=== PATIENT | male | born 1945 | race Caucasian/White ===

== ENCOUNTER 2018-11-17 10:33 | Inpatient (IN) ==
[2018-11-17] MEDS ORDERED: Ipratropium/Albuterol Neb 3 ML IH ONE (10:41)
[2018-11-17] MEDS ORDERED: methylPREDNISolone 125 MG/2 ML VIAL IVP ONE (10:41)
[2018-11-17] MEDS ORDERED: 0.9 % Sodium Chloride 1,000 ML IVC ONE (10:47)
[2018-11-17 11:13] LABS: Bilirubin,Urine Small (Negative); Blood,Urine Negative (Negative); Clarity,Urine Cloudy (Clear); Color,Urine Dark Yellow (Yellow); Glucose,Urine (UA) Normal (Normal); Ketones,Urine 40 mg/dL (Negative); Leukocyte Esterase,Urine Negative (Negative); Nitrite,Urine Negative (Negative); PH,Urine 5.5 pH Units (5.0-8.0); Protein,Urine 30 mg/dL (Neg-Trace); Specific Gravity,Urine 1.029 (1.010-1.025); Urobilinogen,Urine Normal (Normal)
[2018-11-17] MEDS ORDERED: Piperacillin/Tazobactam 3.375 GM in 0.9 % Sodium Chloride Mini Bag 100 ML IVPB ONE (11:13)
[2018-11-17 11:16] LABS: Bacteria,Urine None Seen per hpf (None-Few); Hyaline Casts,Urine Moderate per lpf (None-Few); Squamous Epithelial Cell,Urine Many per lpf (None-Few)
--- NOTE | 2018-11-17 11:21 | Emergency Department Note ---
Disposition Clinical Impression: COPD exacerbation Pneumonia Qualifiers: Pneumonia type: due to unspecified organism Laterality: left Lung location: lower lobe of lung Qualified Code(s): J18.1 - Lobar pneumonia, unspecified organism Disposition: Admitted As Inpatient Condition: Fair Referrals: Miriam Fritz CNP [Primary Care Provider] - Forms: ED Satisfaction Letter Time of Disposition: 11:22 General Adult HPI - General Chief complaint: ED Weakness Stated complaint: COPD,Upper respiratory infection Time Seen by Provider: 11/17/18 10:39 Source: patient, family Mode of arrival: ambulatory Limitations: no limitations Nursing Notes Reviewed: Yes Vital Signs Reviewed: Yes - History of Present Illness HPI Narrative: 73 year old male with history of COPD and does not wear supplemental oxygen at home prsents to the ED with complaints of fialing outpatient terapy for CAP and was on a 10 day course of levaquin without improvement. Halima states that he feels more dyspneic and although not hypoxic at bedside is requiring 2LNC for therapy. Halima has a productive cough and is febrile to 100.5. Denies chest pain but feels like he is wheezing. He has not had any rcent hospitalization, no recent surgeries. Halima PCP is concerned that he needs IV ABX due to failign outpatient therapy. Pain Scale: 0 - Related Data Home Medications Medication Instructions Recorded Confirmed Alprazolam [Xanax] 0.5 mg PO TID PRN 07/19/15 07/19/15 Aspirin 81 mg PO HS 07/19/15 07/19/15 Cholecalciferol (Vitamin D3) 2,000 unit PO HS 07/19/15 07/19/15 [Vitamin D] Clopidogrel [Plavix] 75 mg PO DAILY 07/19/15 07/19/15 Cyanocobalamin (Vitamin B-12) 1,000 mcg PO HS 07/19/15 07/19/15 [Vitamin B-12] Fluticasone Propionate Nasal 1 spray NS DAILY 07/19/15 07/19/15 [Flonase] Lansoprazole [Prevacid] 30 mg PO DAILY 07/19/15 07/19/15 Lisinopril [Zestril] 10 mg PO HS 07/19/15 07/19/15 Metformin HCl [Glucophage Xr] 500 mg PO BID 07/19/15 07/19/15 Metoprolol XL (24 HR) Succ [Toprol 50 mg PO HS 07/19/15 07/19/15 XL] Ranitidine HCl [Zantac] 150 mg PO DAILY 07/19/15 07/19/15 Sotalol HCl [Betapace] 120 mg PO BID 07/19/15 07/19/15 Allergies Allergy/AdvReac Type Severity Reaction Status Date / Time No Known Allergies Allergy Verified 07/19/15 09:13 Constitutional: Reports: fever, chills, weakness. Denies: weight change Eyes: Denies: eye pain, eye discharge, vision change ENT ED: Denies: ear pain, throat pain, dental pain, hearing loss, epistaxis, congestion, dysphagia Cardiovascular: Denies: chest pain, palpitations, dyspnea on exertion, edema, syncope Respiratory: Reports: cough, dyspnea, wheezes. Denies: hemoptysis, stridor Gastrointestinal: Denies: abdominal pain, nausea, vomiting, diarrhea, constipation, hematemesis, melena, hematochezia Genitourinary: Denies: urgency, dysuria, frequency, hematuria Musculoskeletal: Denies: back pain, neck pain, arthralgia, myalgia Integumentary: Denies: rash, abrasion, lesions Neurological: Denies: headache, weakness, numbness, paresthesias, confusion, abnormal gait, vertigo Psychiatric: Denies: anxiety, depression, suicidal thoughts, homicidal thoughts, auditory hallucinations, visual hallucinations Endocrine: Denies: fatigue Hematological/Lymphatic: Denies: easy bleeding, easy bruising Allergic/Immunologic: Denies: facial swelling, urticaria Past Medical History - Past Medical History Medical history: Reports: COPD, coronary artery disease, CVA, diabetes, hyperlipidemia, hypertension, myocardial infarction, TIA, other Surgical history: Reports: angioplasty/stent, coronary bypass (CABG), pacemaker/AICD Psychiatric history: Reports: no psych history - Social History Smoking Status: Never smoker Smokeless Tobacco Status: No Alcohol use: Reports: none Drug use: Reports: none Physical Exam - General Limitations: no limitations General appearance: alert, in no apparent distress - Head Head exam: atraumatic, normocephalic, normal inspection - Eye Eye exam: Present: normal appearance, PERRL, EOMI - Expanded Eye Exam Pupils: Bilateral: reactive - ENT ENT exam: normal exam, normal oropharynx, mucous membranes moist - Expanded ENT Exam External ear exam: Present: normal external inspection Mouth exam: Present: normal external inspection Teeth exam: Present: normal inspection Throat exam: Present: normal inspection - Neck Neck exam: Present: normal inspection, full ROM, trachea midline - Chest Chest inspection: Present: normal inspection, symmetric chest wall rise - Respiratory Respiratory exam: Present: wheezes - Cardiovascular Cardiovascular exam: Present: regular rate, normal rhythm, normal heart sounds - Abdominal Exam Abdominal exam: Present: soft, Non-Tender. Absent: tenderness, distention, guarding, rebound, rigidity - Extremities Exam Extremities exam: Present: normal inspection, full ROM. Absent: tenderness, pedal edema - Expanded Upper Extremity Exam Shoulder exam: Present: normal inspection, full ROM Arm exam: Present: normal inspection, full ROM Elbow exam: Present: normal inspection, full ROM Forearm/Wrist exam: Present: normal inspection, full ROM Hand exam: Present: normal inspection, full ROM Vascular exam: Normal: capillary refill, radial pulse - Expanded Lower Extremity Exam Hip/Pelvis exam: Present: normal inspection, full ROM Upper leg exam: Present: normal inspection, full ROM Knee exam: Present: normal inspection, full ROM Lower leg exam: Present: normal inspection, full ROM Ankle exam: Present: normal inspection, full ROM Foot/toe exam: Present: normal inspection, full ROM Neurovascular/Tendon exam: Absent: motor deficit, sensory deficit, tendon deficit - Back Exam Back exam: Present: normal inspection, full ROM. Absent: tenderness - Neurological Exam Neurological exam: Present: alert, oriented X3 - Expanded Neurological Exam Patient oriented to: Present: person, place, time Coma Scale Eye Opening: Spontaneous Coma Scale Motor Response: Obeys Commands Coma Scale Verbal Response: Oriented Coma Scale Total: 15 - Psychiatric Psychiatric exam: Present: normal affect, normal mood - Skin Skin exam: Present: warm, dry, intact, normal color Course Course Narrative: halima has pnuemonia confirmed on CXR, vanc and zosyn have been started and IVF with tylenol therapy. I tamar admit to medicine. - Consultations Consultation #1: discussee case with Dr. Long and she accepts halima to her service. Halima is agreeable to plan. Time: 12:14 Vital Signs Temperature 100.5 F H 11/17/18 10:44 Pulse Rate 96 11/17/18 10:44 Respiratory Rate 20 11/17/18 10:44 Blood Pressure 123/80 01/08/19 10:44 O2 Sat by Pulse Oximetry 89 11/17/18 10:44 Temperature 100.5 F H 11/17/18 11:41 Pulse Rate 95 11/17/18 11:41 Respiratory Rate 20 11/17/18 11:41 Blood Pressure 152/79 11/17/18 11:41 O2 Sat by Pulse Oximetry 97 11/17/18 11:41 Oxygen Delivery Oxygen Delivery Nasal Cannula Medical Decision Making - Medical Records Medical records reviewed: Yes I reviewed the patient's medical records. - Lab Data Lab results reviewed: Yes I reviewed the patient's lab results. Result diagrams: 11/17/18 11:28 11/17/18 11:28 Lab Results 11/17/18 11/17/18 11/17/18 Range/Units 10:56 11:28 11:28 WBC (4.3-11.1) K/mcL RBC (4.19-5.50) M/mcL Hgb (12.9-16.9) g/dL Hct (37.5-50.1) % MCV (83.0-100.0) fL MCH (28.0-33.3) pg MCHC (31.6-35.5) g/dL RDW (11.5-14.5) % Plt Count (140-400) K/mcL MPV (9.4-12.4) fL Immature Gran % (0-4) % Seg Neutrophils % % Lymphocytes % % Monocytes % % Eosinophils % % Basophils % % Neutrophils # (1.6-8.9) K/mcL Lymphocytes # (0.6-4.6) K/mcL Monocytes # (0.0-1.3) K/mcL Eosinophils # (0.0-0.6) K/mcL Basophils # (0.0-0.2) K/mcL PT 13.1 H (9.4-12.1) Seconds INR 1.2 APTT 32.3 (26.0-36.0) Seconds Sodium (136-145) mEq/L Potassium (3.5-5.1) mEq/L Chloride (98-107) mEq/L Carbon Dioxide (23-29) mEq/L BUN (8-23) mg/dL Creatinine (0.70-1.30) mg/dL Est GFR ( Amer) (> 60) Est GFR (Non-Af Amer) (> 60) BUN/Creatinine Ratio (6-26) Glucose (70-105) mg/dL Calculated Osmolality (280-300) Lactic Acid (0.5-2.2) mmol/L Calcium (8.6-10.3) mg/dL Phosphorus (2.7-4.5) mg/dL Magnesium (1.6-2.6) mg/dL Total Bilirubin (0.3-1.0) mg/dL Direct Bilirubin (0.0-0.2) mg/dL Indirect Bilirubin (0.0-1.2) mg/dL AST (13-39) Units/L ALT (7-52) Units/L Alkaline Phosphatase (34-104) Units/L Troponin I (< 0.04) ng/mL B-Natriuretic Peptide 74 (Less than 100) pg/mL Serum Total Protein (6.4-8.9) g/dL Albumin (3.5-5.7) g/dL Globulin (2.4-3.5) g/dL Albumin/Globulin Ratio (1.1-2.2) Urine Color Dark Yellow (Yellow) Urine Clarity Cloudy A (Clear) Urine pH 5.5 (5.0-8.0) pH Units Ur Specific [place] 1.029 H (1.010-1.025) Urine Protein 30 H (Neg-Trace) mg/dL Urine Glucose (UA) Normal (Normal) mg/dL Urine Ketones 40 H (Negative) mg/dL Urine Blood Negative (Negative) Urine Nitrite Negative (Negative) Urine Bilirubin Small H (Negative) Urine Urobilinogen Normal (Normal) mg/dL Ur Leukocyte Esterase Negative (Negative) Urine Microscopic RBC 5-15 H (0-3) per hpf Urine Microscopic WBC 3-5 H (0-3) per hpf Ur Squamous Epith Cells Many H (None-Few) per lpf Urine Bacteria None Seen (None-Few) per hpf Hyaline Casts Moderate H (None-Few) per lpf Ur Culture Indicated? NO (NO) 11/17/18 11/17/18 11/17/18 Range/Units 11:28 11:28 11:28 WBC 11.7 H (4.3-11.1) K/mcL RBC 4.84 (4.19-5.50) M/mcL Hgb 13.9 (12.9-16.9) g/dL Hct 41.9 (37.5-50.1) % MCV 86.6 (83.0-100.0) fL MCH 28.7 (28.0-33.3) pg MCHC 33.2 (31.6-35.5) g/dL RDW 12.6 (11.5-14.5) % Plt Count 180 (140-400) K/mcL MPV 10.2 (9.4-12.4) fL Immature Gran % 0.3 (0-4) % Seg Neutrophils % 80.5 % Lymphocytes % 6.7 % Monocytes % 11.4 % Eosinophils % 0.8 % Basophils % 0.3 % Neutrophils # 9.4 H (1.6-8.9) K/mcL Lymphocytes # 0.8 (0.6-4.6) K/mcL Monocytes # 1.3 (0.0-1.3) K/mcL Eosinophils # 0.1 (0.0-0.6) K/mcL Basophils # 0.0 (0.0-0.2) K/mcL PT (9.4-12.1) Seconds INR APTT (26.0-36.0) Seconds Sodium 129 L (136-145) mEq/L Potassium 4.7 (3.5-5.1) mEq/L Chloride 93 L (98-107) mEq/L Carbon Dioxide 28 (23-29) mEq/L BUN 20 (8-23) mg/dL Creatinine 0.91 (0.70-1.30) mg/dL Est GFR ( Amer) > 60 (> 60) Est GFR (Non-Af Amer) > 60 (> 60) BUN/Creatinine Ratio 22 (6-26) Glucose 164 H (70-105) mg/dL Calculated Osmolality 274 L (280-300) Lactic Acid (0.5-2.2) mmol/L Calcium 9.2 (8.6-10.3) mg/dL Phosphorus 3.3 (2.7-4.5) mg/dL Magnesium 2.0 (1.6-2.6) mg/dL Total Bilirubin 1.4 H (0.3-1.0) mg/dL Direct Bilirubin 0.3 H (0.0-0.2) mg/dL Indirect Bilirubin 1.1 (0.0-1.2) mg/dL AST 10 L (13-39) Units/L ALT 12 (7-52) Units/L Alkaline Phosphatase 64 (34-104) Units/L Troponin I < 0.03 (< 0.04) ng/mL B-Natriuretic Peptide (Less than 100) pg/mL Serum Total Protein 7.0 (6.4-8.9) g/dL Albumin 4.1 (3.5-5.7) g/dL Globulin 2.9 (2.4-3.5) g/dL Albumin/Globulin Ratio 1.4 (1.1-2.2) Urine Color (Yellow) Urine Clarity (Clear) Urine pH (5.0-8.0) pH Units Ur Specific [place] (1.010-1.025) Urine Protein (Neg-Trace) mg/dL Urine Glucose (UA) (Normal) mg/dL Urine Ketones (Negative) mg/dL Urine Blood (Negative) Urine Nitrite (Negative) Urine Bilirubin (Negative) Urine Urobilinogen (Normal) mg/dL Ur Leukocyte Esterase (Negative) Urine Microscopic RBC (0-3) per hpf Urine Microscopic WBC (0-3) per hpf Ur Squamous Epith Cells (None-Few) per lpf Urine Bacteria (None-Few) per hpf Hyaline Casts (None-Few) per lpf Ur Culture Indicated? (NO) 11/17/18 Range/Units 11:28 WBC (4.3-11.1) K/mcL RBC (4.19-5.50) M/mcL Hgb (12.9-16.9) g/dL Hct (37.5-50.1) % MCV (83.0-100.0) fL MCH (28.0-33.3) pg MCHC (31.6-35.5) g/dL RDW (11.5-14.5) % Plt Count (140-400) K/mcL MPV (9.4-12.4) fL Immature Gran % (0-4) % Seg Neutrophils % % Lymphocytes % % Monocytes % % Eosinophils % % Basophils % % Neutrophils # (1.6-8.9) K/mcL Lymphocytes # (0.6-4.6) K/mcL Monocytes # (0.0-1.3) K/mcL Eosinophils # (0.0-0.6) K/mcL Basophils # (0.0-0.2) K/mcL PT (9.4-12.1) Seconds INR APTT (26.0-36.0) Seconds Sodium (136-145) mEq/L Potassium (3.5-5.1) mEq/L Chloride (98-107) mEq/L Carbon Dioxide (23-29) mEq/L BUN (8-23) mg/dL Creatinine (0.70-1.30) mg/dL Est GFR ( Amer) (> 60) Est GFR (Non-Af Amer) (> 60) BUN/Creatinine Ratio (6-26) Glucose (70-105) mg/dL Calculated Osmolality (280-300) Lactic Acid 1.2 (0.5-2.2) mmol/L Calcium (8.6-10.3) mg/dL Phosphorus (2.7-4.5) mg/dL Magnesium (1.6-2.6) mg/dL Total Bilirubin (0.3-1.0) mg/dL Direct Bilirubin (0.0-0.2) mg/dL Indirect Bilirubin (0.0-1.2) mg/dL AST (13-39) Units/L ALT (7-52) Units/L Alkaline Phosphatase (34-104) Units/L Troponin I (< 0.04) ng/mL B-Natriuretic Peptide (Less than 100) pg/mL Serum Total Protein (6.4-8.9) g/dL Albumin (3.5-5.7) g/dL Globulin (2.4-3.5) g/dL Albumin/Globulin Ratio (1.1-2.2) Urine Color (Yellow) Urine Clarity (Clear) Urine pH (5.0-8.0) pH Units Ur Specific [place] (1.010-1.025) Urine Protein (Neg-Trace) mg/dL Urine Glucose (UA) (Normal) mg/dL Urine Ketones (Negative) mg/dL Urine Blood (Negative) Urine Nitrite (Negative) Urine Bilirubin (Negative) Urine Urobilinogen (Normal) mg/dL Ur Leukocyte Esterase (Negative) Urine Microscopic RBC (0-3) per hpf Urine Microscopic WBC (0-3) per hpf Ur Squamous Epith Cells (None-Few) per lpf Urine Bacteria (None-Few) per hpf Hyaline Casts (None-Few) per lpf Ur Culture Indicated? (NO) - Radiology Data Radiology results reviewed: Yes I reviewed the patient's radiology results. - EKG Data EKG #1 EKG attestation: Yes I reviewed and interpreted this EKG. EKG results narrative: NSR with rate of 91. NO STEMI. normal interlvals. no change from 06/05/15. 1055
[2018-11-17 11:40] LABS: Basophils % 0.3 %; Eosinophils # 0.1 K/mcL (0.0-0.6); Eosinophils % 0.8 %; Hematocrit 41.9 % (37.5-50.1); Hemoglobin 13.9 g/dL (12.9-16.9); Immature Granulocytes % 0.3 % (0-4); Lymphocytes # 0.8 K/mcL (0.6-4.6); Lymphocytes % 6.7 %; Mean Corpuscular HGB Conc 33.2 g/dL (31.6-35.5); Mean Corpuscular Hemoglobin 28.7 pg (28.0-33.3); Mean Corpuscular Volume 86.6 fL (83.0-100.0); Mean Platelet Volume 10.2 fL (9.4-12.4); Monocytes # 1.3 K/mcL (0.0-1.3); Monocytes % 11.4 %; Neutrophils # 9.4 K/mcL (1.6-8.9); Platelet Count 180 K/mcL (140-400); Red Blood Count 4.84 M/mcL (4.19-5.50); Red Cell Distribution Width 12.6 % (11.5-14.5); Segmented Neutrophils % 80.5 %
[2018-11-17 11:49] LABS: INR 1.2; Prothrombin Time 13.1 Seconds (9.4-12.1)
[2018-11-17 11:52] LABS: Activated Partial Thrombo Time 32.3 Seconds (26.0-36.0)
[2018-11-17 12:00] LABS: BUN/Creatinine Ratio 22 (6-26); Blood Urea Nitrogen 20 mg/dL (8-23); Calcium 9.2 mg/dL (8.6-10.3); Carbon Dioxide 28 mEq/L (23-29); Chloride 93 mEq/L (98-107); Glucose 164 mg/dL (70-105); Osmolality,Calculated 274 (280-300); Potassium 4.7 mEq/L (3.5-5.1); Sodium 129 mEq/L (136-145); eGFR For Non-African Americans > 60 (> 60)
[2018-11-17 12:02] LABS: Albumin 4.1 g/dL (3.5-5.7); Albumin/Globulin Ratio 1.4 (1.1-2.2); Bilirubin,Direct 0.3 mg/dL (0.0-0.2); Bilirubin,Indirect 1.1 mg/dL (0.0-1.2); Bilirubin,Total 1.4 mg/dL (0.3-1.0); Globulin 2.9 g/dL (2.4-3.5); Phosphorous 3.3 mg/dL (2.7-4.5); Troponin I < 0.03 ng/mL (< 0.04)
[2018-11-17] MEDS ORDERED: Naloxone 0.4 MG/ML INJ IVP PRN (13:12)
[2018-11-17] MEDS ORDERED: ALPRAZolam 0.5 MG TABLET PO PRN (13:18)
[2018-11-17] MEDS ORDERED: D5% in Water 1,000 ML IVC PRN (13:20)
[2018-11-17] MEDS ORDERED: Dextrose Gel 15 GM/37.5 ML TUBE PO PRN ×2 (13:20)
[2018-11-17] MEDS ORDERED: *HR* Dextrose 50 % in Water (Syg) 50 ML SYRINGE IVP PRN (13:20)
--- NOTE | 2018-11-17 13:42 | Internal Med History&Physical ---
Date of Encounter: 11/17/18 Time of Encounter: 13:00 Internal Medicine - H&P: HPI Chief complaint: Coughing and shortness of breath of a couple of days duration History of present illness: Mr. Cuevas is a 73 year old male with pmh of COPD, CVA, diabetes, CAD presenting with complaints of coughing, wheezing and shortness of breath of about 10 days duration. Patient says symptoms were sudden onset and denies any sick contacts. He went to his PCP who treated him with a 10 day course of levaquin, but he has continued to have no relief from his symptoms. He denies any fevers, admits to lethargy and fatigue. He went back to his PCP who told him to come to the ER. He was noted to be febrile up to 100.5. In the ER, he was given nebs and antibiotics and he is being admitted for further management Past Med Surg Social Fam HX - Past Medical History Medical history: COPD, coronary artery disease, CVA, diabetes, hyperlipidemia, hypertension, myocardial infarction, TIA, other Additional medical history: CAD. STOMACH ULCER. TIA X2- RECOVERED Psychiatric history: no psych history - Past Surgical History Surgical History: angioplasty/stent, coronary bypass (CABG), pacemaker/AICD Additional surgical history: CABG 3v/4 stents. back - Social History Smoking Status: Never smoker Smokeless Tobacco Status: No Alcohol use: none Drug use: none Internal Medicine - H&P: Meds Alprazolam [Xanax] 0.5 mg PO TID PRN 07/19/15 [History] Aspirin 81 mg PO HS 07/19/15 [History] Cholecalciferol (Vitamin D3) [Vitamin D] 2,000 unit PO HS 07/19/15 [History] Clopidogrel [Plavix] 75 mg PO DAILY 07/19/15 [History] Cyanocobalamin (Vitamin B-12) [Vitamin B-12] 1,000 mcg PO HS 07/19/15 [History] Fluticasone Propionate Nasal [Flonase] 1 spray NS DAILY 07/19/15 [History] Lansoprazole [Prevacid] 30 mg PO DAILY 07/19/15 [History] Lisinopril [Zestril] 10 mg PO HS 07/19/15 [History] Metformin HCl [Glucophage Xr] 500 mg PO BID 07/19/15 [History] Metoprolol XL (24 HR) Succ [Toprol XL] 50 mg PO HS 07/19/15 [History] Ranitidine HCl [Zantac] 150 mg PO DAILY 07/19/15 [History] Sotalol HCl [Betapace] 120 mg PO BID 07/19/15 [History] Allergy/AdvReac Type Severity Reaction Status Date / Time No Known Allergies Allergy Verified 07/19/15 09:13 All Systems PM: A 10-system review of systems was performed and is negative for pertinent findings except as documented above in the HPI. - Constitutional Constitutional: no chills, no fever(s), no night sweats - EENT Eyes: no change in vision, no discharge, no pain, no photophobia Ears: no ear discharge, no ear pain, no tinnitus Nose, mouth and throat: no dysphagia, no nasal discharge, no neck pain, no sore throat - Cardiovascular Cardiovascular ROS IM: dyspnea, no chest pain, no diaphoresis, no lightheadedness, no palpitations, no syncope - Respiratory Respiratory: cough, dyspnea, wheezing, no excessive phlegm production - Gastrointestinal Gastrointestinal: no abdominal pain, no diarrhea, no hematemesis, no hematochezia, no melena, no nausea, no vomiting - Musculoskeletal Musculoskeletal ROS IM: no numbness, no tingling - Integumentary Integumentary IM: no rash, no unusual bruising - Neurological Neurological ROS: no confusion, no convulsions, no focal weakness, no numbness, no tingling, no tremor(s) - Hematologic/Lymphatic Hematologic/Lymphatic: no easy bruising - Constitutional Vitals: Temp Pulse Resp BP Pulse Ox 100.5 F H 90 22 132/85 97 11/17/18 11:41 11/17/18 12:00 11/17/18 12:00 11/17/18 12:00 11/17/18 12:00 Exam: NAD - Head Head exam: Present: atraumatic, normocephalic - Eye Eye exam: Present: PERRL, conjuntiva pink, sclera anicteric Pupils: Present: PERRL - Neck Neck exam general surgery: Present: supple, trachea midline. Absent: lymphadenopathy - Respiratory Respiratory exam: Present: decreased breath sounds, wheezes. Absent: accessory muscle use, rales, rhonchi - Cardiovascular Cardiovascular exam: Present: RRR, +S1, +S2. Absent: diastolic murmur, gallop, rubs, systolic murmur - GI/Abdominal GI/Abdominal exam: Present: normal bowel sounds, soft, no peritoneal signs. Absent: distended, tenderness - Extremities Exam Extremities exam: Present: warm, radial pulses palpable and symmetrical. Absent: calf tenderness, cyanotic, pedal edema - Neurological Exam Neurological exam: Present: CN II-XII intact, oriented X3, no focal deficits. Absent: pronater drift, facial droop, speech deficit - Skin Skin exam: Present: dry, intact Internal Med - H&P Results - Labs CBC & Chem 7: 11/17/18 11:28 11/17/18 11:28 Labs: Short CBC 11/17/18 Range/Units 11:28 WBC 11.7 H (4.3-11.1) K/mcL Hgb 13.9 (12.9-16.9) g/dL Hct 41.9 (37.5-50.1) % Plt Count 180 (140-400) K/mcL Neutrophils # 9.4 H (1.6-8.9) K/mcL BMP 11/17/18 11:28 Sodium 129 L Potassium 4.7 Chloride 93 L Carbon Dioxide 28 BUN 20 Creatinine 0.91 Glucose 164 H Calcium 9.2 Cardiac Enzymes 11/17/18 Range/Units 11:28 Troponin I < 0.03 (< 0.04) ng/mL Liver Function 11/17/18 Range/Units 11:28 Total Bilirubin 1.4 H (0.3-1.0) mg/dL Direct Bilirubin 0.3 H (0.0-0.2) mg/dL AST 10 L (13-39) Units/L ALT 12 (7-52) Units/L Alkaline Phosphatase 64 (34-104) Units/L Albumin 4.1 (3.5-5.7) g/dL Urine 11/17/18 Range/Units 10:56 Urine Color Dark Yellow (Yellow) Urine Clarity Cloudy A (Clear) Urine pH 5.5 (5.0-8.0) pH Units Ur Specific [place] 1.029 H (1.010-1.025) Urine Protein 30 H (Neg-Trace) mg/dL Urine Glucose (UA) Normal (Normal) mg/dL - Impressions ITS Impressions Chest X-Ray 11/17/18 10:41 IMPRESSION: 1. Left lower lobe pneumonia. Follow-up to resolution is recommended. D/ / Burak Logan MD / Burak Logan MD Interpreting Provider: Burak Logan MD - Assessment and plan (1) Sepsis Current Visit: Yes Status: Acute Assessment and plan: Sepsis likely 2/2 to community acquired pneumonia. Pt comes in with leukocytosis, tachycardia and tachypnea with CAP Failed outpatient therapy with levaquin. Will start on zosyn. Follow blood cultures, urine legionella and streptococcal antigen Qualifiers: Qualified Code(s): A41.9 - Sepsis, unspecified organism (2) Pneumonia Current Visit: Yes Status: Acute Assessment and plan: Pt comes in with leukocytosis, tachycardia and tachypnea with CAP on xray Failed outpatient therapy with levaquin. Will start on zosyn. Follow blood cultures, urine legionella and streptococcal antigen Qualifiers: Pneumonia type: due to unspecified organism Laterality: left Lung location: lower lobe of lung Qualified Code(s): J18.1 - Lobar pneumonia, unspecified organism (3) COPD exacerbation Current Visit: Yes Status: Acute Assessment and plan: Started on nebs, steroids and antibiotics (4) CAD (coronary artery disease) Current Visit: Yes Status: Acute Assessment and plan: Resume home meds with aspirin, plavix and beta blockers Qualifiers: Qualified Code(s): I25.10 - Atherosclerotic heart disease of [place] coronary artery without angina pectoris (5) Diabetes mellitus Current Visit: Yes Status: Acute Assessment and plan: LDSS insulin and monitor fingersticks Qualifiers: Qualified Code(s): E11.9 - Type 2 diabetes mellitus without complications (6) Hyponatremia Current Visit: Yes Status: Acute Assessment and plan: On IV fluids with normal saline (7) DVT prophylaxis Current Visit: Yes Status: Acute Assessment and plan: heparin sc - Time Spent With Patient Total time spent is greater than 50% in coordination of care (as documented) at patient's floor/unit and/or counseling patient:
[2018-11-17 14:12] LABS: Estimated Average Glucose 160 mg/dl; Hemoglobin A1C 7.2 %
[2018-11-17] MEDS: Ipratropium/Albuterol Neb 3 ML IH SCH ×3 (15:39→23:32)
[2018-11-17] MEDS: 0.9 % Sodium Chloride 1,000 ML IVC SCH (15:57)
[2018-11-17] MEDS ORDERED: methylPREDNISolone 125 MG/2 ML VIAL IVP SCH (16:00)
[2018-11-17] MEDS: MethylPREDNISolone 40 MG/ML VIAL IVP SCH (17:46)
[2018-11-17] MEDS: Insulin LISPRO 300 UNITS/3 ML VIAL SQ SCH ×2 (17:46→22:05)
[2018-11-17 18:08] LABS: Adenovirus Not Detected (Not Detect); Bordetella Pertussis Not Detected (Not Detect); Chlamydophila pneumoniae Not Detected (Not Detect); Coronavirus 229E Not Detected (Not Detect); Coronavirus HKU1 Not Detected (Not Detect); Coronavirus NL63 Not Detected (Not Detect); Coronavirus OC43 Not Detected (Not Detect); Human Metapneumovirus Not Detected (Not Detect); Human Rhinovirus/Enterovirus DETECTED (Not Detect); Influenza A Subtype 2009 H1 Not Detected (Not Detect); Influenza A Untypeable Not Detected (Not Detect); Influenza B Not Detected (Not Detect); Mycoplasma pneumoniae Not Detected (Not Detect); Parainfluenza Virus 1 Not Detected (Not Detect); Parainfluenza Virus 2 Not Detected (Not Detect); Parainfluenza Virus 3 Not Detected (Not Detect); Parainfluenza Virus 4 Not Detected (Not Detect); Respiratory Syncytial Virus Not Detected (Not Detect)
[2018-11-17] MEDS: Budesonide/Formoterol 160/4.5 1 PUFF INH IH SCH (20:10)
[2018-11-17] MEDS: Cholecalciferol (D-3) 1,000 UNIT TABLET PO SCH (21:13)
[2018-11-17] MEDS: Aspirin 81 MG TAB.CHEW PO SCH (21:13)
[2018-11-17] MEDS: Metoprolol XL (24 HR) Succ 50 MG TAB.ER.24H PO SCH (21:13)
[2018-11-17] MEDS: Piperacillin/Tazobactam 3.375 GM in 0.9 % Sodium Chloride Mini Bag 100 ML IVPB SCH (21:13)
[2018-11-17] MEDS: Cyanocobalamin (B-12) 1,000 MCG TABLET PO SCH (21:14)
--- NOTE | 2018-11-17 21:28 | Electrocardiograph Report ---
[facility] Data Test Date: 2018-11-17 Pat Name: Vy Cuevas Department: [id number] Room: 3B24 Gender: M Classroom Assistant: : 1945 Requested By: Jolene Quinones Order Number: [id number] Reading MD: Scott Henry Measurements Intervals [place] Rate: 91 P: 77 SC: 226 QRS: 85 QRSD: 120 T: 29 QT: 366 QTc: 451 Interpretive Statements Sinus rhythm Nonspecific intraventricular conduction delay Electronically Signed On 11-17-2018 21:27:01 EST by Scott Henry
[2018-11-18] MEDS: Piperacillin/Tazobactam 3.375 GM in 0.9 % Sodium Chloride Mini Bag 100 ML IVPB SCH ×3 (04:09→21:00)
[2018-11-18 04:21] LABS: Basophils % 0.2 %; Eosinophils % 0.1 %; Hematocrit 35.6 % (37.5-50.1); Immature Granulocytes % 0.3 % (0-4); Lymphocytes # 0.6 K/mcL (0.6-4.6); Lymphocytes % 4.7 %; Mean Corpuscular HGB Conc 34.3 g/dL (31.6-35.5); Mean Corpuscular Volume 84.6 fL (83.0-100.0); Mean Platelet Volume 10.8 fL (9.4-12.4); Monocytes % 4.4 %; Neutrophils # 11.2 K/mcL (1.6-8.9); Platelet Count 196 K/mcL (140-400); Red Blood Count 4.21 M/mcL (4.19-5.50); Red Cell Distribution Width 12.5 % (11.5-14.5); Segmented Neutrophils % 90.3 %
[2018-11-18 04:24] LABS: Hemoglobin 12.2 g/dL (12.9-16.9); Monocytes # 0.6 K/mcL (0.0-1.3)
[2018-11-18 04:37] LABS: BUN/Creatinine Ratio 26 (6-26); Blood Urea Nitrogen 21 mg/dL (8-23); Calcium 8.7 mg/dL (8.6-10.3); Carbon Dioxide 23 mEq/L (23-29); Chloride 98 mEq/L (98-107); Glucose 275 mg/dL (70-105); Magnesium 2.1 mg/dL (1.6-2.6); Osmolality,Calculated 281 (280-300); Phosphorous 2.1 mg/dL (2.7-4.5); Potassium 4.3 mEq/L (3.5-5.1); Sodium 129 mEq/L (136-145); eGFR For Non-African Americans > 60 (> 60)
[2018-11-18] MEDS: Ipratropium/Albuterol Neb 3 ML IH SCH ×6 (04:42→23:24)
[2018-11-18] MEDS: MethylPREDNISolone 40 MG/ML VIAL IVP SCH ×2 (06:12→17:28)
[2018-11-18] MEDS: 0.9 % Sodium Chloride 1,000 ML IVC SCH ×2 (06:12→17:29)
[2018-11-18] MEDS: Budesonide/Formoterol 160/4.5 1 PUFF INH IH SCH ×2 (07:43→19:47)
[2018-11-18] MEDS: Insulin LISPRO 300 UNITS/3 ML VIAL SQ SCH ×4 (08:39→21:03)
[2018-11-18] MEDS ORDERED: Fluticasone Propionate Nasal 50 MCG/SPRAY BOTTLE NS SCH (09:00)
--- NOTE | 2018-11-18 10:46 | Internal Med Progress Note ---
<Pavithra Hinds P - Last Filed: 11/18/18 15:21> Hospitalist Progress Note - Encounter Date of Encounter: 11/18/18 Time of Encounter: 08:45 - Subjective Interval History: 73 year old male with past medical history of COPD without home oxygen , CVA, diabetes, CAD presenting with complaints of coughing, wheezing and shortness of breath of about 10 days duration. He has hx of frequent chest infecton /pneumonia in the past , it was treated with Levaquin from his primary care provider. Recently his respiratory symptoms got worse and came to the hospital. In ED he has had elevated temperature 100.5F and elevated white cell count. His chest x-ray showed left lower lobe pneumonia.Rhino Viral was detected in Respi panel test. He was admitted for inpatient management with IV antibiotic and IV steroid. Today during my bedside visit, the patient was lying comfortably on the bed, was not in acute distress, answering question appropriately. His vitals are stable, is not febrile after admission. He stated that after IV antibiotic he has been much better, he does have some shortness of breath and wheezing but a lot ana r.He admitted dry cough and slight tightness in chest. - Exam Vitals: Temp Pulse Resp BP Pulse Ox 97.7 F 84 18 114/70 98 11/18/18 06:30 11/18/18 06:30 11/18/18 07:43 11/18/18 06:30 11/18/18 07:43 Exam: Gen: Alert, awake , Oriented to time,place and person Chest: Diminished BS b/l, No crackles, No rales,expiratory wheezing ++ Heart: S1S2+ RRR No Murmurs Abd: Soft, NT, BS + No organomegaly Ext: No edema, pulses are palpable, no tenderness Neuro: No focal neuro deficits Psych: Normal mood Skin: No rash - Assessment and Plan (1) Pneumonia Current Visit: Yes Status: Acute Assessment and Plan: The patient was presented for shortness of breath and cough, the patient has history of frequent pneumonia and taking Levaquin twice in past 3 months Patient has elevated white cell count: 12.4 and neutrophil 11.2. CXR : Left lower lobe pneumonia. The patient is on IV Zosyn, (2) COPD exacerbation Current Visit: Yes Status: Acute Assessment and Plan: The patient is chronic patient of COPD without home oxygen, past smoker. He was presented with shortness of breath, wheezing, cough and COPD excerbation is due to infection. Respi pannel test positive for Rhino virus. IV antibiotics and IV solumedrol , Symbicort inhaler and nebulization Saturation 98% with 2 L oxygen. (3) CAD (coronary artery disease) Current Visit: Yes Status: Acute Assessment and Plan: The patient has h/o CAD , we have resumed home meds with aspirin, plavix and beta blockers (4) Hyponatremia Current Visit: Yes Status: Acute Assessment and Plan: The patient has low sodium level, recent lab report 129, he is on IV normal saline, we will re-assess his sodium level tomorrow (5) Diabetes mellitus Current Visit: Yes Status: Acute Assessment and Plan: The patient is on insulin sliding scale, latest blood glucose level is 275 and POC glucose 288, A1c 7.2 done this month - Time Spent with Patient Total time spent is greater than 50% in coordination of care (as documented) at patient's floor/unit and/or counseling patient: Internal Medicine: Result - Labs CBC & Chem 7: 11/18/18 03:28 11/18/18 03:28 Labs: Short CBC 11/17/18 11/18/18 Range/Units 11:28 03:28 WBC 11.7 H 12.4 H (4.3-11.1) K/mcL Hgb 13.9 12.2 L D (12.9-16.9) g/dL Hct 41.9 35.6 L (37.5-50.1) % Plt Count 180 196 (140-400) K/mcL Neutrophils # 9.4 H 11.2 H (1.6-8.9) K/mcL BMP 11/17/18 11/18/18 11:28 03:28 Sodium 129 L 129 L Potassium 4.7 4.3 Chloride 93 L 98 Carbon Dioxide 28 23 BUN 20 21 Creatinine 0.91 0.80 Glucose 164 H 275 H Calcium 9.2 8.7 Cardiac Enzymes 11/17/18 Range/Units 11:28 Troponin I < 0.03 (< 0.04) ng/mL Liver Function 11/17/18 Range/Units 11:28 Total Bilirubin 1.4 H (0.3-1.0) mg/dL Direct Bilirubin 0.3 H (0.0-0.2) mg/dL AST 10 L (13-39) Units/L ALT 12 (7-52) Units/L Alkaline Phosphatase 64 (34-104) Units/L Albumin 4.1 (3.5-5.7) g/dL Urine 11/17/18 Range/Units 10:56 Urine Color Dark Yellow (Yellow) Urine Clarity Cloudy A (Clear) Urine pH 5.5 (5.0-8.0) pH Units Ur Specific [place] 1.029 H (1.010-1.025) Urine Protein 30 H (Neg-Trace) mg/dL Urine Glucose (UA) Normal (Normal) mg/dL - ABG Interpretation ABG results: PT/INR, D-dimer PT 13.1 Seconds (9.4-12.1) H 11/17/18 11:28 - Impressions Impressions Chest X-Ray 11/17/18 10:41 IMPRESSION: 1. Left lower lobe pneumonia. Follow-up to resolution is recommended. D/ / Burak Logan MD / Burak Logan MD Interpreting Provider: Burak Logan MD Consult Discharge Plan - Plan Referrals: Miriam Fritz, LALO [Primary Care Provider] - <Shama Mari - Last Filed: 11/18/18 16:07> Hospitalist Progress Note - Encounter Date of Encounter: 11/18/18 - Exam Vitals: Temp Pulse Resp BP Pulse Ox 97.5 F L 74 18 128/77 96 11/18/18 12:03 11/18/18 12:03 11/18/18 15:46 11/18/18 12:03 11/18/18 15:46 - Assessment and Plan (1) Pneumonia Current Visit: Yes Status: Acute (2) COPD exacerbation Current Visit: Yes Status: Acute (3) Sepsis Current Visit: Yes Status: Acute (4) CAD (coronary artery disease) Current Visit: Yes Status: Acute (5) Diabetes mellitus Current Visit: Yes Status: Acute (6) DVT prophylaxis Current Visit: Yes Status: Acute (7) Hyponatremia Current Visit: Yes Status: Acute - Time Spent with Patient Total time spent is greater than 50% in coordination of care (as documented) at patient's floor/unit and/or counseling patient: Internal Medicine: Result - Labs CBC & Chem 7: 11/18/18 03:28 11/18/18 03:28 Labs: Short CBC 11/18/18 Range/Units 03:28 WBC 12.4 H (4.3-11.1) K/mcL Hgb 12.2 L D (12.9-16.9) g/dL Hct 35.6 L (37.5-50.1) % Plt Count 196 (140-400) K/mcL Neutrophils # 11.2 H (1.6-8.9) K/mcL BMP 11/18/18 03:28 Sodium 129 L Potassium 4.3 Chloride 98 Carbon Dioxide 23 BUN 21 Creatinine 0.80 Glucose 275 H Calcium 8.7 - ABG Interpretation ABG results: PT/INR, D-dimer PT 13.1 Seconds (9.4-12.1) H 11/17/18 11:28 - Attending Attestation I examined this patient and my medical decision-making was reviewed with the Resident Physician Dr. Hinds. I agree with the documented findings, disposition and treatment plan as described except to the extent set forth below. Mr. Cuevas is a 73 y/o M with known PMH of COPD, HTN pt admitted here for recurrent pneumonia. Pt was placed on empirical abx Zosyn and IV steroids. He states his breathing is lot better today. Currently on 2 lit O2. His Spo2 @ 89 on RA. Gen: A, A, O x3 Chest: Mild wheezing, no crackles, no rales, Diminished BS b.l a/p 1. Acute PNA - bacterial 2. Acute resp distress 3. Acute COPD exacerbation start tapering steroids cont empirical abx Duoneb and try to wean him off the O2 he may need home O2 eval <Pavithra Hinds P - Last Filed: 11/18/18 15:21> (1) Pneumonia Qualifiers: Pneumonia type: due to unspecified organism Laterality: left Lung location: lower lobe of lung Qualified Code(s): J18.1 - Lobar pneumonia, unspecified organism (3) CAD (coronary artery disease) Qualifiers: Qualified Code(s): I25.10 - Atherosclerotic heart disease of [place] coronary artery without angina pectoris (5) Diabetes mellitus Qualifiers: Qualified Code(s): E11.9 - Type 2 diabetes mellitus without complications <Shama Mari - Last Filed: 11/18/18 16:07> (1) Pneumonia Qualifiers: Pneumonia type: due to unspecified organism Laterality: left Lung location: lower lobe of lung Qualified Code(s): J18.1 - Lobar pneumonia, unspecified organism (3) Sepsis Qualifiers: Qualified Code(s): A41.9 - Sepsis, unspecified organism (4) CAD (coronary artery disease) Qualifiers: Qualified Code(s): I25.10 - Atherosclerotic heart disease of [place] coronary artery without angina pectoris (5) Diabetes mellitus Qualifiers: Qualified Code(s): E11.9 - Type 2 diabetes mellitus without complications
[2018-11-18] MEDS: Aspirin 81 MG TAB.CHEW PO SCH (21:02)
[2018-11-18] MEDS: Cholecalciferol (D-3) 1,000 UNIT TABLET PO SCH (21:02)
[2018-11-18] MEDS: Metoprolol XL (24 HR) Succ 50 MG TAB.ER.24H PO SCH (21:02)
[2018-11-18] MEDS: Cyanocobalamin (B-12) 1,000 MCG TABLET PO SCH (21:02)
[2018-11-19] MEDS: Piperacillin/Tazobactam 3.375 GM in 0.9 % Sodium Chloride Mini Bag 100 ML IVPB SCH (03:25)
[2018-11-19] MEDS: 0.9 % Sodium Chloride 1,000 ML IVC SCH (03:26)
[2018-11-19] MEDS: Ipratropium/Albuterol Neb 3 ML IH SCH ×2 (03:42→08:03)
[2018-11-19 05:35] LABS: BUN/Creatinine Ratio 25 (6-26); Blood Urea Nitrogen 21 mg/dL (8-23); Calcium 8.6 mg/dL (8.6-10.3); Carbon Dioxide 25 mEq/L (23-29); Chloride 98 mEq/L (98-107); Glucose 198 mg/dL (70-105); Osmolality,Calculated 281 (280-300); Potassium 4.2 mEq/L (3.5-5.1); Sodium 131 mEq/L (136-145); eGFR For Non-African Americans > 60 (> 60)
[2018-11-19] MEDS: MethylPREDNISolone 40 MG/ML VIAL IVP SCH (06:33)
[2018-11-19 07:13] VITALS: BP 129/75
[2018-11-19] MEDS: Budesonide/Formoterol 160/4.5 1 PUFF INH IH SCH (08:03)
[2018-11-19] MEDS: Insulin LISPRO 300 UNITS/3 ML VIAL SQ SCH (08:45)
[2018-11-19 10:01] LABS: Hematocrit 38.4 % (37.5-50.1); Hemoglobin 12.7 g/dL (12.9-16.9); Mean Corpuscular HGB Conc 33.1 g/dL (31.6-35.5); Mean Corpuscular Hemoglobin 28.5 pg (28.0-33.3); Mean Corpuscular Volume 86.1 fL (83.0-100.0); Mean Platelet Volume 10.5 fL (9.4-12.4); Platelet Count 212 K/mcL (140-400); Red Blood Count 4.46 M/mcL (4.19-5.50); Red Cell Distribution Width 12.2 % (11.5-14.5)
--- NOTE | 2018-11-19 10:33 | Discharge Summary ---
<Pavithra Hinds P - Last Filed: 11/19/18 16:47> - NOTES TO OUTPATIENT PROVIDER Notes to Outpatient Provider: *The patient will follow-up with his primary care provider within a week. *The patient will take oral Prednisone in tapering dose. *The patient will take oral antibiotic / Augmentin for 5 days. *The pt will see allergic specialist in 3-4 weeks . Orders not resulted at time of discharge: Pending orders 11/17/18 11:28 Culture,Blood [BC] Stat Date of Encounter: 11/19/18 Time of Encounter: 08:45 - Discharge Diagnosis (1) Pneumonia Priority: Primary Status: Acute Qualifiers: Pneumonia type: due to unspecified organism Laterality: left Lung location: lower lobe of lung Qualified Code(s): J18.1 - Lobar pneumonia, unspecified organism (2) COPD exacerbation Priority: Primary Status: Acute (3) CAD (coronary artery disease) Priority: Secondary Status: Chronic Qualifiers: Qualified Code(s): I25.10 - Atherosclerotic heart disease of [place] coronary artery without angina pectoris (4) Hyponatremia Priority: Secondary Status: Chronic (5) Diabetes mellitus Priority: Secondary Status: Chronic Qualifiers: Qualified Code(s): E11.9 - Type 2 diabetes mellitus without complications Hospital course: Mr. Cuevas is a 73 year old male with past medical history of COPD without home oxygen , CVA, diabetes, CAD presented to ED with complaints of coughing with scanty sputum, wheezing and shortness of breath of about 10 days. He has hx of frequent chest infecton /pneumonia in the past ,he was treated with Levaquin from his primary care provider. Recently his respiratory symptoms got worse and came to the Emergency . In ED he has had elevated temperature 100.5F and elevated white cell count 11.7 .His chest x-ray showed left lower lobe pneumonia.Rhino Viral was detected in Respiratory panel test. He was admitted for inpatient management with IV antibiotic Zosyn and IV steroid. After admission the patient has been clinically improved, his shortness of breath, cough, chest tightness has been improved significantly. His vitals are stable. We are planning to discharge him and he will follow-up with his primary care provider within a week. He will take oral antibiotic Augmentin and tapering dose of steroid for couple of days. - Time Spent with Patient Total time spent providing and/or coordinating discharge services: - Discharge Medications Prescriptions: Amoxicillin/Clavulanate [Augmentin] 875 mg PO BIDWM 5 Days #10 tablet RX: PredniSONE [Deltasone] 10 mg PO ONCE 5 Days #11 tablet Home Medications: RX: Aspirin 81 mg PO HS 07/19/15 [History] RX: Cyanocobalamin (Vitamin B-12) [Vitamin B12] 1,000 mcg PO HS 07/19/15 [History] RX: Lisinopril [Zestril] 10 mg PO HS 07/19/15 [History] RX: ALPRAZolam [Xanax 0.5 MG Tablet] 0.5 mg PO TID PRN 11/17/18 [History] RX: Albuterol Sulfate [Ventolin Hfa] 2 puff IH Q6H PRN 11/17/18 [History] RX: Cholecalciferol (D-3) [Vitamin D] 2,000 unit PO DAILY 11/17/18 [History] RX: Clopidogrel [Plavix] 75 mg PO DAILY 11/17/18 [History] RX: Esomeprazole Magnesium [Nexium] 40 mg PO QAM 11/17/18 [History] RX: Fluticasone Propionate Nasal [Flonase] 1 spray NS DAILY 11/17/18 [History] RX: Fluticasone/Salmeterol [Advair Hfa 230-21 Mcg Inhaler] 2 puff IH BID 11/17/18 [History] RX: Hydrocortisone 1% CREAM [Cortaid] 1 appl TP BID PRN 11/17/18 [History] RX: Multivitamin [Flintstones] 1 tab PO DAILY 11/17/18 [History] RX: Sertraline [Zoloft] 50 mg PO DAILY 11/17/18 [History] RX: Sotalol [Betapace] 80 mg PO Q12HR 11/17/18 [History] Amoxicillin/Clavulanate [Augmentin] 875 mg PO BIDWM 5 Days #10 tablet 11/19/18 [Rx] RX: PredniSONE [Deltasone] 10 mg PO ONCE 5 Days #11 tablet 11/19/18 [Rx] Allergies/Adverse Reactions: Allergy/AdvReac Type Severity Reaction Status Date / Time No Known Allergies Allergy Verified 07/19/15 09:13 Date of admission: 11/17/18 13:12 Primary care physician: Miriam Fritz CNP - Constitutional Vitals: Temp Pulse Resp BP Pulse Ox 97.6 F 63 18 129/75 93 11/19/18 07:05 11/19/18 07:05 11/19/18 08:03 11/19/18 07:05 11/19/18 08:03 General appearance: Present: A&O X 3, no acute distress, answers questions appropriately Exam: Gen: Alert, awake , Oriented to time,place and person Chest: Diminished BS b/l, No crackles, No rales,expiratory wheezing minimal Heart: S1S2+ RRR No Murmurs Abd: Soft, NT, BS + No organomegaly Ext: No edema, pulses are palpable, no tenderness Neuro: No focal neuro deficits Psych: Normal mood Skin: No rash - Patient Status Disposition: Home, Self-Care Condition: Good Functional capacity at discharge: independent ambulation Overall status at discharge: patient is progressing back to baseline - Discharge Instructions Follow Up With: Miriam Fritz CNP [Primary Care Provider] - 11/25/18 10:00 am - Diet and Activity Activity: resume usual activities as tolerated Diet: diabetic diet <Porfirio Maribu - Last Filed: 11/19/18 16:52> Orders not resulted at time of discharge: Pending orders 11/17/18 11:28 Culture,Blood [BC] Stat Date of Encounter: 11/19/18 - Discharge Diagnosis (1) Pneumonia Status: Acute Qualifiers: Pneumonia type: due to unspecified organism Laterality: left Lung location: lower lobe of lung Qualified Code(s): J18.1 - Lobar pneumonia, unspecified organism (2) COPD exacerbation Status: Acute (3) Sepsis Status: Acute Qualifiers: Qualified Code(s): A41.9 - Sepsis, unspecified organism (4) CAD (coronary artery disease) Status: Chronic Qualifiers: Qualified Code(s): I25.10 - Atherosclerotic heart disease of [place] coronary artery without angina pectoris (5) Diabetes mellitus Status: Chronic Qualifiers: Qualified Code(s): E11.9 - Type 2 diabetes mellitus without complications (6) DVT prophylaxis Status: Acute (7) Hyponatremia Status: Chronic Hospital course: Mr. Cuevas is a 73 year old male - Time Spent with Patient Total time spent providing and/or coordinating discharge services: Date of admission: 11/17/18 13:12 Primary care physician: Miriam Fritz CNP - Constitutional Vitals: Temp Pulse Resp BP Pulse Ox 97.6 F 63 18 129/75 93 11/19/18 07:05 11/19/18 07:05 11/19/18 08:03 11/19/18 07:05 11/19/18 08:03 - Attending Attestation I examined this patient and my medical decision-making was reviewed with the Resident Physician Dr. Hinds. I agree with the documented findings, disposition and treatment plan as described except to the extent set forth below. Mr. Cuevas is a 73 y/o M with known PMH of COPD, HTN pt admitted here for recurrent pneumonia. Pt was placed on empirical abx Zosyn and IV steroids. He states his breathing is lot better today. Breathing comfortably on room air. Gen: A, A, O x3 Chest: Mild wheezing, no crackles, no rales, Diminished BS b.l a/p 1. Acute PNA - bacterial 2. Acute resp distress 3. Acute COPD exacerbation he does need longer duration of steroid therapy educate the patient about it placed him on tapering dose steroids for now recommend to continue steroid inhaler Advair switch to oral antibiotic Augmentin stable to [place] home today
== END 2018-11-19 12:43 | disposition home or self-care (01) | DRG 871 ==
LOC: EMEROOARM 10:33 → 3BNU 10:33 → SUATTDRO 13:12 → 3BNU 13:41
PROVIDERS: ADMIT Hospitalist; ATTEND Family Medicine